=== PATIENT | female | born 1945 | race Caucasian/White ===

== ENCOUNTER 2018-08-05 17:40 | Emergency (ER) | payer MEDICARE, OTHER ==
--- NOTE | 2018-08-05 18:26 | EDM.PDOC ---
ED HPI GENERAL MEDICAL PROBLEM - General Chief Complaint: Lower Extremity Injury/Pain Stated Complaint: R KNEE PAIN Time Seen by Provider: 08/05/18 18:26 Source of Information: Reports: Patient - History of Present Illness INITIAL COMMENTS - FREE TEXT/NARRATIVE: Patient is here for evaluation of right knee pain. She states that earlier this evening she was walking and heard a pop in her knee, she states she had some pain and was unable to bear weight. No traumatic injury, did not fall or injure this. She notes that she had complete range of motion without difficulty , only pain when bearing weight. States area is not swollen. She's had previous problems with her left knee but not her right. Right Knee Pain Score (Numeric/FACES): 8 - Related Data Allergies Allergy/AdvReac Type Severity Reaction Status Date / Time No Known Allergies Allergy Verified 08/05/18 17:48 Review of Systems - Review of Systems Review Of Systems: See Below Constitutional: Reports: No Symptoms Respiratory: Reports: No Symptoms Cardiovascular: Reports: No Symptoms Musculoskeletal: Reports: Other (Right knee pain with weight bearing). Denies: Joint Swelling, Muscle Pain Skin: Reports: No Symptoms Neurological: Reports: No Symptoms ED EXAM, GENERAL - Physical Exam Exam: See Below General Appearance: Alert, WD/WN, No Apparent Distress Cardiovascular: Normal Peripheral Pulses Extremities: Normal Inspection, Normal Range of Motion, Other (Right knee without ecchymosis or edema. Localized posterior swelling. No tenderness. FROM without pain. Ant/post drawer negative. No joint laxity. ) Neurological: Alert, Oriented, No Motor/Sensory Deficits Psychiatric: Normal Affect, Normal Mood Skin Exam: Warm, Dry, No Rash. No: Ecchymosis, Wound/Incision Course - Vital Signs Last Recorded V/S: Last Vital Signs Temp 98.5 F 08/05/18 17:48 Pulse 80 08/05/18 17:48 Resp 18 08/05/18 17:48 BP 137/75 08/05/18 17:48 Pulse Ox 100 08/05/18 17:48 - Orders/Labs/Meds Orders: Active Orders 24 hr Category Date Time Status Knee 3V Rt [CR] Stat Exams 08/05/18 18:26 Taken - Re-Assessments/Exams Free Text/Narrative Re-Assessment/Exam: Patient declined medication for pain as she has no pain at all with at rest. X-ray demonstrates no acute abnormality, official radiology report is pending. Patient will be placed in immobilizer. She has crutches at home and will use these for the next week. If symptoms not completely resolved within the next week, she'll follow up with orthopedics or return to the emergency room for any new or worsening symptoms. She will use Tylenol as needed for pain, ibuprofen if needed. Ice if pain flares as well. 08/05/18 20:49 Departure - Departure Time of Disposition: 19:51 Disposition: Home, Self-Care 01 Condition: Good Clinical Impression: Knee pain, right Qualifiers: Chronicity: acute Qualified Code(s): M25.561 - Pain in right knee - Discharge Information Instructions: Knee Pain, Adult Referrals: Artur Crzu MD [Primary Care Provider] - Forms: ED Department Discharge Care Plan Goals: You were evaluated in the emergency department today for evaluation of knee pain Xray demonstrated no fracture or acute abnormality I recommend using knee immobilizer and crutches for the next week. Tylenol 650mg q4hr as needed for pain Follow-up with Dr Feliz for any persistent pain, return to ED for new or worsening pain. - My Orders Last 24 Hours: My Active Orders 08/05/18 18:26 Knee 3V Rt [CR] Stat - Assessment/Plan Last 24 Hours: My Active Orders 08/05/18 18:26 Knee 3V Rt [CR] Stat
--- NOTE | 2018-08-06 15:18 | CR ---
Right knee: AP, lateral and sunrise patellar views of the right knee were obtained. Comparison: No prior right knee exam. Medial and lateral joint spaces appear maintained. No joint effusion is seen. Patellofemoral joint is within normal limits. No fracture, dislocation or other bony abnormality is seen. Impression: 1. No abnormality is identified on three-view right knee exam. Diagnostic code #1
== END 2018-08-05 20:10 | disposition home or self-care (01) ==
LOC: JD.ED 17:40
DX: M25.561 Pain in right knee (principal)
CPT/HCPCS: 73562-26-RT; 73562-RT; 99283-25

== ENCOUNTER 2022-01-24 17:40 | Emergency (ER) | payer MEDICARE, OTHER ==
[2022-01-24] MEDS ORDERED: HYDROmorphone 1 MG/ML Syringe IVPUSH STA (19:14)
[2022-01-24] MEDS ORDERED: Ondansetron 4 MG/2 ML SDV IVPUSH ONE (19:14)
[2022-01-24] MEDS ORDERED: Sodium Chloride 0.9% 1,000 ML IV SCH (19:15)
[2022-01-24] MEDS ORDERED: Sodium Chloride 0.9% 10 ML Syringe FLUSH PRN (20:32)
[2022-01-24] MEDS ORDERED: Iopamidol 612 MG/ML 100 ML Bottle IVPUSH ONE (20:32)
[2022-01-24] MEDS ORDERED: Tamsulosin 0.4 MG Cap.ER PO ONE (21:50)
== END 2022-01-24 22:30 | disposition home or self-care (01) ==
LOC: JD.ED 17:40
DX: N13.2 Hydronephrosis with renal and ureteral calculous obstruction (principal); R11.10 Vomiting, unspecified; E78.00 Pure hypercholesterolemia, unspecified; E11.9 Type 2 diabetes mellitus without complications; Z79.899 Other long term (current) drug therapy
CPT/HCPCS: 36415; 74177; 80053; 81001; 83690; 83735; 85007; 85027; 96361; 96374; 96375; 99284; A9270; J1170; J2405; J3490; J7030; Q9967